=== PATIENT | male | born 1960 | race Caucasian/White ===

== ENCOUNTER 2017-01-26 07:06 | Inpatient (IN) | payer MEDICARE ==
[~2017-01-26] VITALS: Ht 170.2 cm; Wt 185.5 kg
--- NOTE | 2017-01-27 08:27 | ER ---
ADMIT: 01/26/2017 RM/LOC: ER [facility] MR#: [id number] [id number] [address] WOO GUTIERREZ [address] [place] [address] Emergency Room Report SEX: M AGE: 56 : 1960 DATE: 01/26/2017 ADDENDUM: This 56-year-old white male coming in with right-sided leg swelling and pain. Ultrasound negative. He has this recurrently. He has history of Hodgkin lymphoma. He does make our sepsis protocol. White count 18.3. Lactate is 2.7. So we have SIRS sepsis, but no shock at this time. He was given Zosyn and vancomycin and I spoke with Dr. Bolivar. He will need to admit him. The [facility] is on diversion, so [facility] CONDITION ON DISCHARGE: Serious but stable. Eriberto Blanchard MD/ modl JOB #: [id number] CC: Eriberto Blanchard MD, Attending Physician [facility] Physician, Family Physician
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
[2017-02-01] MEDS ORDERED: THERA1 EACH PO (18:08)
[2017-02-01] MEDS ORDERED: KLOR-CON M2020 ME1 PO (18:09)
[2017-02-01] MEDS ORDERED: FLOMAX DPS0.4 MG PO (18:09)
[2017-02-01] MEDS ORDERED: NORCO 10-325 T1 EACH PO (18:09)
[2017-02-01] MEDS ORDERED: LASIX DPS40 MG PO (18:09)
[2017-02-01] MEDS ORDERED: ZESTRIL DPS20 MG PO (18:10)
[2017-02-01] MEDS ORDERED: LOPRESSOR DPS50 MG PO (18:10)
[2017-02-01] MEDS ORDERED: VITAMIN D-32000 UNI1 PO (18:10)
[2017-02-01] MEDS ORDERED: GENTEAL GEL DRO15 ML OU (18:11)
[2017-02-01] MEDS ORDERED: MOTRIN-DPS800 MG PO (18:11)
[2017-02-01] MEDS ORDERED: KEFLEX-DPS500 MG PO (18:12)
[2017-02-01] MEDS ORDERED: COSOPT PLUS DPS10 ML OS (18:12)
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
== END 2017-01-31 14:06 | disposition home or self-care (01) | DRG 872 ==
LOC: ER 07:06 → 4PCU 09:30
PROVIDERS: ADMIT Family Medicine
DX: A41.9 Sepsis, unspecified organism (principal); Z68.44 Body mass index [BMI] 60.0-69.9, adult; I10 Essential (primary) hypertension; L03.115 Cellulitis of right lower limb; E66.01 Morbid (severe) obesity due to excess calories; E87.6 Hypokalemia; I89.0 Lymphedema, not elsewhere classified; G47.33 Obstructive sleep apnea (adult) (pediatric); F32.9 Major depressive disorder, single episode, unspecified; N40.0 Benign prostatic hyperplasia without lower urinary tract symptoms; Z85.72 Personal history of non-Hodgkin lymphomas